=== PATIENT | male | born 1995 | race Caucasian/White ===

== ENCOUNTER 2023-08-12 13:34 | Emergency (ER) | payer BC, MEDICAID ==
[~2023-08-12] VITALS: Ht 172.7 cm; Wt 86.4 kg
[2023-08-12 13:52] VITALS: BP 119/78; PULSE 89; RESP 20; TEMP 97; O2SAT 100
[2023-08-12] MEDS ORDERED: OXYC-145 PO ×2 (16:15→18:09)
[2023-08-12] MEDS ORDERED: ketorolac trometh inj. 60 MG/2 ML VIAL IM ONE (16:15)
[2023-08-12] MEDS ORDERED: oxyCODONE/APAP 5-325mg tablet PO ONE (16:15)
== END 2023-08-12 16:44 | disposition home or self-care (01) ==
LOC: ER 13:35
DX: S72.8X1G Other fracture of right femur, subsequent encounter for closed fracture with delayed healing (principal); X58.XXXD Exposure to other specified factors, subsequent encounter
CPT/HCPCS: 96372; 99283; J1885

== ENCOUNTER 2025-05-14 19:43 | Emergency (ER) | payer BC, MEDICAID ==
[~2025-05-14] VITALS: Ht 172.7 cm; Wt 58.9 kg
[~2025-05-14 19:43] MED LIST: OXYC-145 PO
[2025-05-14 19:44] VITALS: TEMP 97.7
[2025-05-14 20:44] LABS: STREP A SCREEN NEGATIVE (Neg)
[2025-05-14] MEDS: ketorolac trometh 15mg/ml vial 15 MG/ML ML IV ONE (21:29)
[2025-05-14] MEDS: dexamethasone sod phosphate 10mg/ml inj IM STA (21:32)
[2025-05-14] MEDS: acetaminophen 1,000mg/100ml IV 100 ML IV SCH (22:01)
--- NOTE | 2025-05-14 22:17 | Physician Documentation ---
History of Present Illness ~ Chief Complaint: Sore Throat Stated Complaint: STREP THROAT Time Seen by MD: 20:14 HPI Patient is a 29-year-old male that presents to the emergency department for evaluation of sore throat difficulty swallowing and right-sided lymphadenopathy. Patient reports 2 status sore throat x3 days. Patient reports that the progression of a swelling in his throat a significant over the last day. Patient reports fever chills and sweats. Patient reports he has been taking NyQuil without relief. Patient denies any other significant past medical history at this time. Medication Reconciliation Allergies: Coded Allergies: No Known Allergies (Unverified , 05/14/25) Scheduled PRN Oxycodone HCl/Acetaminophen (Percocet 5-325 mg Tablet), 1 TAB PO TID PRN PRN for pain Review of Systems ROS As stated above in the HPI, otherwise all systems are reviewed and negative. Physical Exam Vital Signs: Temperature: 97.7, Source: Temporal, Heart Rate: 118, Respiratory Rate: 16, BP: 137/91, Pulse Oximetry: 98, Weight: 58.940 Physical Exam VITALS: Reviewed and as above. GENERAL: Alert, no apparent distress. HEENT: Normocephalic, atraumatic, PERRL, EOMI, dry mucosa, significant erythema and swelling to the posterior oropharynx and tonsils, lymphadenopathy noted 2 submandibular lymph nodes and tonsillar lymph nodes. RESPIRATORY: Lungs clear, normal breath sounds, no respiratory distress. CHEST: No accessory muscle use, no retractions CV: Regular rate, rhythm, no edema, no murmur, No: JVD GI: Soft, non-tender, bowels sounds present, no rebound, guarding, or rigidity BACK: No CVA tenderness, or swelling MUSCULOSKELETAL No deformities, no edema SKIN: Warm and dry, no rash NEURO: Oriented x4, No motor or sensory deficit PSYCH: Normal mood and affect, no agitation Progress Results/Orders Results/Orders Orders - JORGE RAMIREZ CLINICAL IMPLEMENTATION SPECIALIST Cult Throat + R/O Beta Strep (05/14/25 20:44) Acetaminophen 1,000mg/100ml Iv (Ofirmev (05/14/25 21:45) Completed Orders - JORGE RAMIREZ CLINICAL IMPLEMENTATION SPECIALIST Strep A Rapid (05/14/25 20:20) Clindamycin 600mg/D5w 50ml (Cleocin 600m (05/14/25 20:45) Dexamethasone Inj (Decadron 10mg/Ml Inj) (05/14/25 20:50) Ketorolac Trometh 15mg/Ml Vial (Toradol (05/14/25 20:55) Acetaminophen 1,000mg/100ml Iv (Ofirmev (05/15/25 02:00) Medications Received in ER Medications (Trade) Dose Ordered Sig/Lorena Route PRN Reason Start Time Stop Time Status Last Admin Dose Admin Clindamycin HCl/ Dextrose 50 ml @ 100 mls/hr ONCE ONCE IV 05/14/25 20:45 05/14/25 21:14 DC 05/14/25 21:29 100 MLS/HR (Decadron 10mg/ ml inj) 10 mg ONCE STAT IM 05/14/25 20:50 05/14/25 20:52 DC 05/14/25 21:32 10 MG (Toradol injection) 30 mg ONCE ONCE IV 05/14/25 20:55 05/14/25 20:56 DC 05/14/25 21:29 30 MG Acetaminophen 100 ml @ 400 mls/hr ONCE IV 05/14/25 21:45 05/15/25 21:36 05/14/25 22:01 400 MLS/HR Vital Signs 05/14/25 05/14/25 19:44 21:29 Temp 97.7 Pulse 118 Resp 15 16 B/P (MAP) 137/91 Pulse Ox 98 Laboratory Tests Test 05/14/25 20:10 Group A Streptococcus Rapid Negative Medical Decision Making Findings Patient presents with acute pharyngitis. Rapid strep negative. No history of immunocompromise. Nontoxic appearance. Patient euvolemic with no trismus. No airway compromise. No change in voice or exudates. Significantly enlarged tonsils and lymph nodes. Able to tolerate PO. Given History and Exam I have low suspicion for this presentation being caused by SOLDER DEPOSIT OPERATOR, RPA, Ludwigs angina, Epiglottitis or Bacterial Tracheitis, EBV, acute HIV, or Strep throat. Patient given 10 mg of dexamethasone 600 mg of clindamycin 30 mg of IV Toradol 1 g of IV Tylenol here in the emergency department. Patient reports feeling significantly better at this time. Patient will follow up with his primary care provider. Patient will return to the emergency department with any worsening of his current symptoms or any additional concerning symptoms that we discussed here today i.e. difficulty swallowing, any airway difficulties, nausea vomiting increased fever chills or any other concerning symptoms. Ear Diff. Dx: Considerations: Include: Abrasion, Cerumen impaction, Foreign body, Otitis externa, Barotrauma, Otitis media, Perforation, Referred pain- dental, Referred pain-pharyngitis, Referred pain-sinusitis, Referred pain-TMJ syn., Tympanic Membrane Injury, Other Throat Diff Dx: Considerations: Include: AIDS, Epiglottitis, Esophageal candidiasis, Hand foot mouth disease, Herpangina, Herpetic stomatitis, Herpes simplex, Infection mononucleosis, Immunodeficiency, Robert's angina, Perito nsillar abscess, Peritonsillar cellulitis, Pharyngitis-diphtheria, Pharyngitis- strepococcal, Pharyngitis-viral, Thrush, URI, Other Departure Disposition: 01 HOME / SELF CARE / HOMELESS Impression: Primary Impression: Sore throat Additional Impressions: Acute pharyngitis Swelling of tonsil Discharge Instructions: Pharyngitis, Sore Throat Additional Instructions: Patient presents with acute pharyngitis. Rapid strep negative. No history of immunocompromise. Nontoxic appearance. Patient euvolemic with no trismus. No airway compromise. No change in voice or exudates. Significantly enlarged tonsils and lymph nodes. Able to tolerate PO. Given History and Exam I have low suspicion for this presentation being caused by SOLDER DEPOSIT OPERATOR, RPA, Ludwigs angina, Epiglottitis or Bacterial Tracheitis, EBV, acute HIV, or Strep throat. Patient given 10 mg of dexamethasone 600 mg of clindamycin 30 mg of IV Toradol 1 g of IV Tylenol here in the emergency department. Patient reports feeling significantly better at this time. Patient will follow up with his primary care provider. Patient will return to the emergency department with any worsening of his current symptoms or any additional concerning symptoms that we discussed here today i.e. difficulty swallowing, any airway difficulties, nausea vomiting increased fever chills or any other concerning symptoms. Starting tomorrow, Tylenol ibuprofen as needed for fevers and discomfort. Please take your antibiotic as prescribed and until it is finished. Increase your fluid intake. Follow up with her primary care provider. Return to the emergency department with any worsening or recurrent symptoms or any additional concerning symptoms that we discussed here today. Referrals: NO PRIMARY CARE PROVIDER (PCP) Prescriptions Clindamycin HCl (Clindamycin HCl) 300 Mg Capsule 1 CAP PO Q8H for 10 Days, #30 CAP Prov: JORGE RAMIREZ 05/14/25 Education Educated: Patient Educated regarding: diagnosis, treatment, need for follow up Signature Scribe Signature: A Attestation: Scribed for Jorge Ramirez by CARLENE Hopkins . 05/14/25 22:33 JORGE RAMIREZ May 14, 2025 22:17
[2025-05-14] MEDS ORDERED: CLIN300C54 PO (22:32)
[2025-05-14 22:36] VITALS: BP 128/89; PULSE 88; RESP 16; O2SAT 98
[2025-05-15] MEDS ORDERED: acetaminophen 1,000mg/100ml IV 100 ML IV SCH (02:00)
== END 2025-05-14 22:43 | disposition home or self-care (01) ==
LOC: ER 19:43
DX: J02.9 Acute pharyngitis, unspecified (principal); R50.9 Fever, unspecified
CPT/HCPCS: 87081; 87880; 96365; 96368; 96372; 96375; 99284; J0131; J1100; J1885; J3490

== ENCOUNTER 2025-07-26 17:18 | Emergency (ER) | payer BC, MEDICAID ==
[~2025-07-26] VITALS: Ht 172.7 cm; Wt 77.3 kg
[2025-07-26 17:20] VITALS: BP 138/87; PULSE 87; RESP 16; TEMP 98.5; O2SAT 99
--- NOTE | 2025-07-26 18:01 | Physician Documentation ---
History of Present Illness ~ Chief Complaint: Rash Stated Complaint: POISON OAK Time Seen by MD: 17:35 HPI This is a 29-year-old male who presents with a rash to his bilateral upper extremities, trunk, and face after exposure to poison oak three days prior. Patient reports rash is itchy though reports feeling otherwise well. Patient reports no other acute symptoms or concerns including no fever. Medication Reconciliation Allergies: Coded Allergies: No Known Allergies (Unverified , 07/26/25) Scheduled PRN Oxycodone HCl/Acetaminophen (Percocet 5-325 mg Tablet), 1 TAB PO TID PRN PRN for pain Past Medical History Past Medical History: No Pertinent History Review of Systems ROS As stated above in the HPI, otherwise all systems are reviewed and negative. Physical Exam Vital Signs: Temperature: 98.5, Source: Temporal, Heart Rate: 87, Respiratory Rate: 16, BP: 138/87, Pulse Oximetry: 99, Weight: 77.270 Oxygen Flow Rate: 0 Physical Exam VITALS: Reviewed and as above. GENERAL: Alert, nontoxic appearing, no apparent distress. HEENT: No facial swelling RESPIRATORY: No increased work of breathing, no respiratory distress, speaking in full clear sentences SKIN: Diffuse patchy erythematous papulovesicular rash to bilateral upper extremities, trunk, and face without significant involvement of the orbital area. No induration, no fluctuance Progress Results/Orders Results/Orders Completed Orders - ALMA LANDA SLD EDUCATIONAL AIDE Triamcinolone Acet 40mg/Ml Inj (Kenalog- (07/26/25 17:50) Medications Received in ER Medications (Trade) Dose Ordered Sig/Lorena Route PRN Reason Start Time Stop Time Status Last Admin Dose Admin (Kenalog-40 inj) 40 mg ONCE ONCE IM 07/26/25 17:50 07/26/25 17:51 DC 07/26/25 18:12 40 MG Vital Signs 07/26/25 17:20 Temp 98.5 Pulse 87 Resp 16 B/P (MAP) 138/87 Pulse Ox 99 O2 Flow Rate 0 Medical Decision Making Additional information obtaine: N/A Findings This is an otherwise well-appearing 29-year-old male who presents with a diffuse erythematous papulovesicular rash to his bilateral upper extremities, trunk, and face without significant orbital involvement and no facial swelling after exposure to poison oak three days prior, rash is consistent with poison oak contact dermatitis. Is reassuring the rash is describes an itchy and not painful, physical exam did not demonstrate areas of induration or fluctuance to suggest infection and patient reports no fever, chills, or other systemic symptoms. Patient to be treated with triamcinolone injection and provided home care instructions. Patient is otherwise well-appearing with remainder of physical exam benign. Patient provided home care instructions, return to care precautions, and follow up instructions which he verbalized understanding of. Differential Dx:Considerations: Include: Abscess, Atopic dermatitis, Candidiasis, Contact dermatitis, Drug reaction, Erythema multiforme, Erysipelas, Herpes zoster, Herpes simplex, Scabies, Tinea, Urticaria, Varicella, Viral exanthema Departure Time of Disposition: 18:03 Disposition: HOME / SELF CARE / HOMELESS Impression: Primary Impression: Poison oak dermatitis Condition: Improved Discharge Instructions: Poison [place] Dermatitis Additional Instructions: Please keep the rash clean and dry, return if you develop signs of infection. Please follow up with your primary care provider in the next few days. Please return to the emergency department for any new or worsening concerning symptoms but not limited to signs of infection such as fever. Referrals: NO PRIMARY CARE PROVIDER (PCP) Education Educated: Patient Educated regarding: diagnosis, treatment, prognosis, need for follow up Signature Scribe Signature: No scribe Attestation: The note accurately reflects work and decisions made by me.CARLENE Loyd 07/27/25 00:54 ALMA LANDA Jul 26, 2025 18:01
[2025-07-26] MEDS: triamcinolone acetonide 40mg/ml inj IM ONE (18:12)
== END 2025-07-26 18:16 | disposition home or self-care (01) ==
LOC: ER 17:19
DX: L23.7 Allergic contact dermatitis due to plants, except food (principal)
CPT/HCPCS: 96372; 99283; J3301